=== PATIENT | male | born 1965 | race Hispanic/Latino ===

== ENCOUNTER 2022-08-26 20:48 | Emergency (ER) | payer MEDICARE ==
[~2022-08-26] VITALS: Ht 177.8 cm; Wt 99.8 kg
[2022-08-26] MEDS ORDERED: CARB100T4 PO (20:59)
[2022-08-26] MEDS ORDERED: HYDR12.54 PO (20:59)
[2022-08-26] MEDS ORDERED: METO25TA6 PO (20:59)
[2022-08-26] MEDS ORDERED: LACO200T4 PO (20:59)
[2022-08-26] MEDS ORDERED: TAMS-1 PO (20:59)
[2022-08-26] MEDS ORDERED: LEVE500T19 PO (20:59)
[2022-08-26] MEDS ORDERED: TOPI100T37 PO (20:59)
[2022-08-26 21:11] LABS: BASOPHILS % (AUTO) 0.7 % (0.0-5.0); EOSINOPHILS % (AUTO) 7.1 % (0.0-8.0); HEMATOCRIT 40.8 % (42-54); LYMPHOCYTES % (AUTO) 32.9 % (21.0-51.0); MEAN CORPUSCULAR HEMOGLOBIN 32.8 pg (27.0-33.0); MEAN CORPUSCULAR HGB CONC 34.3 g/dL (32.0-36.0); MEAN CORPUSCULAR VOLUME 95.6 fL (79-99); MONOCYTES % (AUTO) 10.5 % (3.0-13.0); NEUTROPHILS % (AUTO) 48.3 % (40.0-77.0); PLATELET COUNT (AUTO) 149 K/uL (130-400); RED BLOOD CELL COUNT(AUTO) 4.27 MIL/uL (4.50-6.20); RED CELL DISTRIBUTION WIDTH 11.8 % (11.0-15.5); WHITE BLOOD COUNT (AUTO) 4.2 K/uL (4.8-10.8)
[2022-08-26] MEDS ORDERED: LORAZEPAM 2 MG/ML 1 ML VIAL ONE (21:11)
[2022-08-26 21:24] LABS: ALBUMIN 3.9 g/dL (3.5-5.0); CARBAMAZEPINE (TEGRETOL) 6.6 mcg/mL (4.0-12.0); CREATININE 0.9 mg/dL (0.5-1.5); POTASSIUM 4.1 mmol/L (3.5-5.1); TOTAL PROTEIN, SERUM 6.8 g/dL (6.0-8.3)
[2022-08-26 21:46] LABS: APPEARANCE,URINE CLEAR (CLEAR); BILIRUBIN,URINE NEGATIVE (NEGATIVE); COLOR,URINE COLORLESS (YELLOW); GLUCOSE, URINE (UA) NEGATIVE (NEGATIVE); KETONES,URINE NEGATIVE (NEGATIVE); LEUKOCYTE ESTERASE ,URINE NEGATIVE Leu/uL (NEGATIVE); NITRATE,URINE NEGATIVE (NEGATIVE); OCCULT BLOOD,URINE NEGATIVE (NEGATIVE); PROTEIN,URINE NEGATIVE (NEGATIVE); UROBILINOGEN,URINE 0.2 mg/dL (0.2-1.0)
[2022-08-26 21:49] LABS: BACTERIA,URINE RARE /HPF (None Seen); MUCUS,URINE RARE LPF (None Seen); SQUAMOUS EPITHELIAL CELL,UR RARE /HPF (0-2)
[2022-08-26 21:52] LABS: AMPHET/METH SCREEN,URINE NEGATIVE (NEGATIVE); BARBITURATE SCREEN, URINE NEGATIVE (NEGATIVE); BENZODIAZEPINES SCREEN,URINE NEGATIVE (NEGATIVE); CANNABINOID SCREEN,URINE NEGATIVE (NEGATIVE); COCAINE SCREEN,URINE NEGATIVE (NEGATIVE); OPIATE SCREEN,URINE NEGATIVE (NEGATIVE); PHENCYCLIDINE SCREEN,URINE NEGATIVE (NEGATIVE)
[2022-08-27] MEDS ORDERED: LEVETIRACETAM 500 MG/5 ML SD VIAL IV SCH
[2022-08-27 00:36] VITALS: BP 124/78
== END 2022-08-27 00:38 | disposition home or self-care (01) ==
LOC: EDH 20:48
DX: G40.909 Epilepsy, unspecified, not intractable, without status epilepticus (principal); I10 Essential (primary) hypertension; F41.9 Anxiety disorder, unspecified; Z79.899 Other long term (current) drug therapy; Z98.890 Other specified postprocedural states
CPT/HCPCS: 99285; 70450; 80156; 80053; 80305; 85025; 36415; 80177; 81001; 96374; J1953; J2060